=== PATIENT | male | born 1985 | race Caucasian/White ===

== ENCOUNTER 2016-09-03 02:26 | Emergency (ER) | payer OTHER ==
[~2016-09-03] VITALS: Ht 177.8 cm; Wt 145.4 kg
[2016-09-03 02:28] VITALS: BP 137/87; PULSE 66; RESP 16; O2SAT 100
[2016-09-03] MEDS ORDERED: IBUP200C PO (02:31)
--- NOTE | 2016-09-03 02:39 | ED.REPORT ---
HPI-Extremity Problem Upper Date of Service Sep 03, 2016 ED Provider: Xiang Howard MD Pt is a 31 year old male with a hx of DM presenting to the ED complaining of right shoulder pain onset today. Denies any other symptoms at this time. He states that he was in the ED earlier because his was a patient and he fell asleep in the chair, then fell onto on his shoulder, and now has worsened pain and decreased ROM of the shoulder. He has a hx of right shoulder dislocation once previously. Nursing Notes Stated Complaint: SHOULDER PAIN Chief Complaint: Extremity Trauma Nursing Notes Reviewed: Yes Allergies: Coded Allergies: fentanyl (Verified Adverse Reaction, Unknown, 09/03/16) Scheduled PRN Ibuprofen (Ibuprofen) 200 Mg Capsule 400 MG PO QID PRN PRN For Pain General Time Seen by MD: 02:37 Chief Complaint Shoulder injury right Hx Obtained From: Patient Arrived By: Walk-in Onset Occurred: 1 - 4 hours ago Symptom Duration: Since onset Caused by: Fall on ground Location: : Shoulder right Quality: Painful Severity: Current: Moderate Severity: Maximum: Severe Recent Healthcare: No recent doctor visit, No recent hospitalization Similar Sx Previous: No Past Medical History Past Medical History Reports: Diabetes mellitus Past Surgical History None Smoking History Unknown if Ever Smoker Social History Alcohol Use: "Social" Drug Use: Denies drug use Other Social History: Good social support Ambulatory Status Independent Review of Systems Constitutional: Denies: Fever, Weakness - generalized Musculoskeletal: Reports: Extremity pain (Right shoulder) Complete sys rev & neg: except as marked. Respiratory: Denies: Shortness of breath Cardiovascular: Denies: Chest pain GI: Denies: Vomiting Physical Exam Initial Vital Signs Vital Signs (First) Date Time Temp Pulse Resp B/P Pulse Ox O2 Delivery O2 Flow Rate FiO2 09/03/16 02:28 37.0 66 16 137/87 100 Room Air Initial VS: Reviewed, Vital signs normal General/Constitutional: Well-developed, Well-nourished Head / Eyes: Atraumatic, Normocephalic, PERRL ENT: Mucous membranes moist, Conjunctiva normal, No scleral icterus Respiratory: No respiratory distress Cardiovascular: Intact distal pulses Abdomen / GI: No distention Lower Extremities: Vascular intact, Neuro intact, No swelling, No tenderness Skin: Warm, Dry, No cyanosis Neurologic: Alert, Oriented, Nonfocal Psychiatric: Mood/affect normal, Behavior normal, Normal thought content Right Shoulder: Positive: ROM reduced, Negative: Deformity present, Neuro deficit present Re-Eval/Medical Decision Med Decision/Clinical Course Blunt trauma from a fall to his anterior right shoulder with a traumatic tendinitis. No bony abnormality and no x-ray indication. Placed in a sling and referred back to primary. Re-Evaluation/Progress : Time of Eval: 03:01 Patient Status: Condition improved Re-Evaluation/Progress Note: Discussed plan for discharge. Pt understands and agrees with plan. Counseled Regarding: Diagnosis, Lab results, Need for follow-up, When/why to return to ED Discharge & Departure Impression: Primary Impression: Right shoulder injury Encounter type: initial encounter Qualified Code: S49.91XA - Unspecified injury of right shoulder and upper arm, initial encounter Disposition: Home Discharge Condition All VS Reviewed: Yes Condition: Improved Patient Instructions: Rotator Cuff Tendinitis (ED) Additional Instructions: It appears that you have injured the rotator cuff right shoulder with a traumatic tendinitis of the biceps tendon. Tylenol and/or ibuprofen as needed. Use the sling for comfort. Follow-up as needed with your primary doctor. Recommend physical therapy for range of motion exercises. Referrals: [facility] Scribe Attestation Portions of this note were transcribed by Aftab Ambrosio. I, Dr. Howard personally performed the history, physical exam and medical decision-making; I reviewed and confirmed the accuracy of the information in the transcribed note. Signed by: Izaiah Velasco, 09/03/2016 at 0333. copies to: [facility] Xiang Howard MD Sep 03, 2016 02:39 AFTAB AMBROSIO Sep 03, 2016 02:47
== END 2016-09-03 03:03 | disposition home or self-care (01) ==
LOC: SED 02:26
DX: S49.91XA Unspecified injury of right shoulder and upper arm, initial encounter (principal); W07.XXXA Fall from chair, initial encounter; Y93.89 Activity, other specified; Y92.009 Unspecified place in unspecified non-institutional (private) residence as the place of occurrence of the external cause; Y99.8 Other external cause status; Z88.5 Allergy status to narcotic agent